=== PATIENT | male | born 1930 | race Caucasian/White ===

== ENCOUNTER 2017-10-21 11:30 | Emergency (ER) | payer MEDICARE ==
[~2017-10-21] VITALS: Ht 177.8 cm; Wt 95.3 kg
[~2017-10-21 11:30] MED LIST: Z.0.ZOCOR20 MG PO; Z.1.ATENOLOL-CHLOR1; [UNRECOGNIZED DRUG - OTHER] PO
[2017-10-21] MEDS ORDERED: COLCHICINE 0.6 MG TAB PO ONE ×2 (12:30→13:00)
== END 2017-10-21 14:21 | disposition home or self-care (01) ==
LOC: ER 11:30
DX: M25.572 Pain in left ankle and joints of left foot (principal); M25.571 Pain in right ankle and joints of right foot; M10.072 Idiopathic gout, left ankle and foot; M10.071 Idiopathic gout, right ankle and foot
CPT/HCPCS: 99283

== ENCOUNTER 2018-08-14 18:34 | Observation (INO) | payer MEDICARE ==
[~2018-08-14] VITALS: Ht 175.3 cm; Wt 90.5 kg
--- OUTSIDE RECORDS SUMMARY | 2018-08-14 18:37 | XMS REPORT | Continuity of Care Document ---
Author Author [facility] Interface Address Unknown Phone Unavailable Problems Problem Status Onset Date Classification Date Reported Comments Source Medications Medication Details Route Status Patient Instructions Ordering Provider Order Date Source Aspirin (Aspir-Low) 81 Mg Tablet.dr Daily Active [facility] Atenolol/Chlorthalidone (Atenolol-Chlorthal 50-25 Tb) 1 Each Tablet [facility] Simvastatin (Zocor) 20 Mg Tablet Daily [facility] Allergies, Adverse Reactions, Alerts Substance Category Reaction Severity Reaction type Status Date Reported Comments Source Immunizations Immunization Date Given Site Status Last Updated Comments Source Results Order Name Results Value Reference Range Date Interpretation Comments Source Vital Signs Vital Sign Value Date Comments Source Encounters Location Location Details Encounter Type Encounter Number Reason For Visit Attending Provider ADM Date DC Date Status Source Departed Emergency Room [id number] KRYSTIAN REBOLLEDO MD 10/21/2017 10/21/2017 [facility] Outpatient [id number] QUENTIN MEADOWS 08/07/2018 Active [facility] Procedures Procedure Code Date Perfomer Comments Source
[2018-08-14 19:27] LABS: BASOPHILS % 0.3 % (0.0-1.0); EOSINOPHILS # (AUTO) 0.1 (0.0-0.4); EOSINOPHILS % 0.9 % (0.0-6.0); HEMATOCRIT 41.5 % (38.2-49.6); HEMOGLOBIN 13.9 g/dL (14.0-18.0); LYMPHOCYTES # (AUTO) 2.6 (1.0-3.2); LYMPHOCYTES % 27.9 % (18.0-39.1); MEAN CORPUSCULAR HGB CONC 33.5 g/dL (31-35); MEAN CORPUSCULAR VOLUME 89.4 fL (81-99); MONOCYTES # (AUTO) 0.9 (0.2-0.8); NEUTROPHILS # (AUTO) 5.5 (2.1-6.9); NEUTROPHILS % 60.6 % (38.7-80.0); PLATELET COUNT 276 x10e3/uL (140-360); RED BLOOD COUNT 4.64 x10e6/uL (4.3-5.7); RED CELL DISTRIBUTION WIDTH 13.8 % (11.7-14.4)
--- NOTE | 2018-08-14 19:27 | NUR ---
ER AT BEDSIDE FOR INITIAL EVAL
[2018-08-14 19:35] LABS: INR 0.94; PROTHROMBIN TIME 13.4 seconds (11.9-14.5)
[2018-08-14 19:36] LABS: PARTIAL THROMBOPLASTIN TIME 32.3 seconds (23.8-35.5)
[2018-08-14 19:43] LABS: ALBUMIN 3.6 g/dL (3.5-5.0); ALBUMIN/GLOBULIN RATIO 1.1 (0.8-2.0); ANION GAP 16.8 mmol/L (8-16); CALCIUM 9.7 mg/dL (8.4-10.2); CREATININE, SERUM 1.21 mg/dL (0.72-1.25); POTASSIUM 3.8 mmol/L (3.5-5.1)
--- NOTE | 2018-08-14 19:55 | Diagnostic Imaging Report ---
CHEST SINGLE (PORTABLE), 08/14/2018 7:11 PM Technique: CHEST SINGLE (PORTABLE) Comparison: None available. Clinical history: Possible TIA Findings: See Impression Impression: Limited by portable lordotic view 1. Cardiomediastinal silhouette is accentuated by technique. Aortic calcification. 2. No consolidation, though limited evaluation of the lung bases due to technique. 3. No effusion or pneumothorax. Signed by: Dr Patricia Dueñas MD on 08/14/2018 7:52 PM
[2018-08-14 20:03] LABS: CREATINE KINASE MB 0.7 ng/mL (0-5.0); THYROID STIMULATING HORMONE 0.871 uIU/mL (0.350-4.940)
--- NOTE | 2018-08-14 20:27 | NUR ---
PT GIVEN URINAL, STATES DOES NOT NEED TO VOID AT PRESENT
--- NOTE | 2018-08-14 20:44 | Diagnostic Imaging Report ---
EXAMINATION: Head CT without contrast. HISTORY:Dizziness and altered mental status. COMPARISON:None. TECHNIQUE: Multidetector axial images were obtained from the foramen magnum to the vertex without contrast. The images were reconstructed using brain and bone algorithms. Thin section brain images were reformatted into coronal and sagittal planes. Dose modulation, iterative reconstruction, and/or weight based adjustment of the mA/kV was utilized to reduce the radiation dose to as low as reasonably achievable. Intravenous contrast: None IMAGE QUALITY: Acceptable. FINDINGS: Skull/scalp: No lytic or blastic. lesions. No surgical changes. Parenchyma: Focal hypodensity in left subinsular region represents age indeterminate vascular insult. Nonspecific bilateral frontoparietal patchy white matter hypodensity are likely related to small vessel ischemic changes. No acute hemorrhage or mass. Arteries: Atherosclerotic calcification in bilateral carotid siphon and V4 segment of right vertebral artery. Mild nonspecific hyperdense appearance of intracranial vessels may represent artifact or related to elevated hematocrit/dehydration. Dural sinuses: No abnormal density suggestive of thrombosis. Ventricles: Moderate compensated dilatation due to volume loss. No acute hydrocephalus. Extra-axial spaces: No abnormal density. Brain volume: Generalized age-related cerebral volume loss. Craniocervical junction: No mass, Chiari malformation, or basilar invagination. Sella: No mass. Paranasal/mastoid sinuses: Imaged portions unremarkable. IMPRESSION: 1. Age indeterminate vascular insult in left subinsular region. 2. Mild supratentorial white matter microvascular ischemic changes. 3. Generalized age-related cerebral volume loss. Signed by: Dr. Amy Womack M.D. on 08/14/2018 8:40 PM
[2018-08-14] MEDS ORDERED: SIMVASTATIN20 MG PO (20:53)
[2018-08-14] MEDS ORDERED: METOPROLOL TAR100 MG PO (20:53)
[2018-08-14] MEDS ORDERED: HYDROCHLOROTHIA50 MG PO (20:53)
--- OUTSIDE RECORDS SUMMARY | 2018-08-14 20:54 | XMS REPORT ---
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 Allergies, Adverse Reactions, Alerts This patient has no known allergies or adverse reactions. Medications This patient has no known medications. Results Test Description Test Time Test Comments Text Results Atomic Results Result Comments CT BRAIN WO 2018-08-14 20:36:00 [place] [address] Patient Name: RADHA PISANO MR #: [id number] : 1930 Age/Sex: 88/M Req #: [id number] Adm Physician: Ordered by: RIDDHI ANDREW MD Report #: [id number] Location: ER Room/Bed: Procedure: [id number] CT/CT BRAIN WO Exam Date: 08/14/18 Exam Time: 1840 REPORT STATUS: Signed EXAMINATION: Head CT without contrast. HISTORY:Dizzi ness and altered mental status. COMPARISON:None. TECHNIQUE: Multidetector axial images were obtained from the foramen magnum to the vertex without contrast. The images were reconstructed using brain and bone algorithms. Thin section brain images were reformatted into coronal and sagittal planes. Dose modulation, iterative reconstruction, and/or weight based adjustment of the mA/kV was utilized to reduce the radiation dose to as low as reasonably achievable. Intravenous contrast: None IMAGE QUALITY: Acceptable. FINDINGS: Skull/scalp: No lytic or blastic. lesions. No surgical changes. Parenchyma: Focal hypodensity in left subinsular region represents age indeterminate vascular insult. Nonspecific bilateral frontoparietal patchy white matter hypodensity are likely related to small vessel ischemic changes. No acute hemorrhage or mass. Arteries: Atherosclerotic calcification in bilateral carotid siphon and V4 segment of right vertebral artery. Mild nonspecific hyperdense appearance of intracranial vessels may represent artifact or related to elevated hematocrit/dehydration. Dural sinuses: No abnormal density suggestive of thrombosis. Ventricles: Moderate compensated dilatation due to volume loss. No acute hydrocephalus. Extra-axial spaces: No abnormal density. Brain volume: Generalized age-related cerebral volume loss. Craniocervical junction: No mass, Chiari malformation, or basilar invagination. Sella: No mass. Paranasal/mastoid sinuses: Imaged portions unremarkable. IMPRESSION: 1. Age indeterminate vascular insult in left subinsular region. 2. Mild supratentorial white matter microvascular ischemic changes. 3. Generalized age-related cerebral volume loss. Signed by: Dr. Amy Womack M.D. on 08/14/2018 8:40 PM Dictated By: AMY WOMACK MD 39 Transcribed By: ANASTASIA on 08/14/182039 COPY TO: RIDDHI ANDREW MD CHEST SINGLE (PORTABLE) 2018-08-14 19:51:00 [place] [address] Patient Name: RADHA PISANO MR #: [id number] : 1930 Age/Sex: 88/M Req #: [id number] Adm Physician: Ordered by: LEIGHA AVALOS PROVIDER RELATIONS REP Report #: [id number] Location: ER Room/Bed: Procedure: [id number] DX/CHEST SINGLE (PORTABLE) Exam Date: 08/14/18 Exam Time: 193 REPORT STATUS: Signed CHEST SINGLE (PORTABLE), 08/14/2018 7:11 PM Te kendricknique: CHEST SINGLE (PORTABLE) Comparison: None available. Clinical history: Possible TIA Findings: See Impression Impression: Limited by portable lordotic view 1. Cardiomediastinal silhouette is accentuated by technique. Aortic calcification. 2. No consolidation, though limited evaluation of the lung bases due to technique. 3. No effusion or pneumothorax. Signed by: Dr Cora Dueñas MD on 08/14/2018 7:52 PM Dictated By: CORA DUEÑAS MD 51 Transcribed By: ANASTASIA on 08/14/181951 COPY TO: LEIGHA AVALOS NP
[2018-08-14 21:33] LABS: BILIRUBIN,URINE NEGATIVE (NEGATIVE); CLARITY,URINE CLEAR (CLEAR); COLOR,URINE YELLOW (YELLOW); KETONES,URINE TRACE (NEGATIVE); LEUKOCYTE ESTERASE ,URINE NEGATIVE (NEGATIVE); NITRITE,URINE NEGATIVE (NEGATIVE); PROTEIN,URINE DIPSTICK NEGATIVE (NEGATIVE); URINE UROBILINOGEN 0.2 mg/dL (0.2 - 1)
[2018-08-14 21:44] LABS: WBC,URINE (MAN) 0-5 /HPF (0-5)
[2018-08-14 22:49] VITALS: BP 151/87
[2018-08-14 22:50] VITALS: BP 151/87
--- NOTE | 2018-08-14 22:50 | NUR ---
Pt received from ER. Pt A&O and in no apparent distress. Pt on 2LNC and tele #3. Neuro checks performed with 0 deficits. Pt son at bedside. All safety measures ensured, bed alarm on, and pt call mann near. Pt encouraged to use call mann for assistance.
[2018-08-15 04:00] VITALS: BP 131/68
--- NOTE | 2018-08-15 05:12 | NUR ---
Dr. Francheska graf
--- NOTE | 2018-08-15 07:10 | NUR ---
Walking rounds done. Patient is resting in bed without any complaints. Son at the bedside. POC discussed. Pt instructed to call for assistance as needed and verbalized understanding.
[2018-08-15 07:57] VITALS: BP 132/72
[2018-08-15] MEDS: ASPIRIN 325 MG TAB PO SCH (08:23)
[2018-08-15] MEDS: HYDROCHLOROTHIAZIDE 25 MG TAB PO SCH (08:23)
[2018-08-15] MEDS: METOPROLOL TARTRATE 50 MG TAB PO SCH (08:27)
--- NOTE | 2018-08-15 09:15 | NUR ---
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 CM/SW role and care transitions discussed. Anticipated discharge plan discussed along with duration of care. CM/SW discussed patients right to make decisions in care. CM/SW work hours given. Patient lives: IN [facility] Admit/Transfer: VIA ED POA/Emergency contact: BARBARA [phone] Current/Previous Home Health: NONE PCP/Follow-up Care: LANE Current/Previous DME: NONE Other Services: NONE Employment Status: RETIRED Areas of Concerns: NONE Referral Needs: NONE Education Needs: NONE IMM/PIERRE given and signed (if applicable): PIERRE Goal for discharge: RETURN HOME NO NEEDS CM/SW left business card at the bedside with contact information. Name and number was also written on the patients whiteboard. Patient verbalized understanding of discussion. CM will follow-up with ongoing discharge and transition of care needs.
--- NOTE | 2018-08-15 09:16 | NUR ---
POST DISCHARGE STATUS FORM FILED IN FRONT OF CHART RETURNING HOME NO NEEDS
--- NOTE | 2018-08-15 11:49 | Diagnostic Imaging Report ---
Exam: Brain MRI without IV contrast History: TIA Comparison studies: Head CT of 08/14/2018. Technique: Sagittal and axial T2 FS, axial DWI, axial T2*GRE, axial T1 FLAIR and axial coronal T2 FLAIR. Intravenous contrast: None Findings: Several pulse sequences are limited by artifacts related to patient motion. Scalp: Normal in signal. No masses. Bone marrow: Normal in signal intensity. Brain sulci: Moderately prominent.. Ventricles: Moderate compensatory dilatation. No hydrocephalus. Extra axial spaces: No mass, no fluid collection. Parenchyma: No mass, acute hemorrhage or acute ischemia. A few scattered T2 FLAIR hyperintense foci in the supratentorial white matter are nonspecific most compatible with chronic microvascular ischemic changes. Small chronic bilateral subinsular lacunar infarcts. Suprasellar region: No abnormalities. Craniocervical junction: Patent foramen magnum. No Chiari malformation. Vessels: Normal flow-voids in the arteries and sinuses. Incidental findings: Lens replacements for previous cataract surgery. Minimal nonspecific reactive T2 hyperintense changes in the right mastoids. IMPRESSION: 1. No acute ischemia or other acute intracranial abnormalities. 2. Mild chronic microvascular ischemic changes. 3. Small chronic bilateral subinsular lacunar infarcts. Signed by: Dr. Damir Diego M.D. on 08/15/2018 11:46 AM
[2018-08-15 12:11] VITALS: BP 141/68
--- NOTE | 2018-08-15 15:50 | NUR ---
Dr. Corrales at the bedside making rounds. Son and at bedside and able to ask all questions.
[2018-08-15 16:11] VITALS: BP 134/70
[2018-08-15] MEDS ORDERED: ENOXAPARIN SOD INJ 40 MG/0.4 ML SYR SC SCH (17:00)
[2018-08-15] MEDS: FAMOTIDINE 20 MG TAB PO SCH (17:12)
--- NOTE | 2018-08-15 17:32 | Consultation ---
DATE OF CONSULTATION: August 15, 2018 NEUROLOGY CONSULTATION HISTORY OF PRESENT ILLNESS: Mr. Pena is an 88-year-old right hand dominant man with past medical history significant for hypertension and hyperlipidemia, admitted to [facility] under observation status on August 14, 2018, with symptoms of a transient ischemic attack. On the evening of admission, the patient experienced the abrupt onset of dysarthria, expressive aphasia, questionable receptive aphasia, and questionable confusion. Mr. Pena does not report a visual field cut or other disturbance, facial droop, hemiparesis, hemihypesthesia, poor balance, or gait impairment associated with the above symptoms. The above symptoms were witnessed by the patient's and son. The son transported Mr. Pena to the emergency center at [facility] for further evaluation of his symptoms. The time to transport was approximately 30 minutes. Once the patient was in the emergency center, his symptoms quickly resolved. Upon arrival in the emergency center, the patient was afebrile with a blood pressure 140/87 mmHg and a pulse of 71 beats per minute. The patient's neurological examination was documented as being nonfocal. A CT of the brain without contrast was performed but did not show evidence of recent large territorial ischemia or hemorrhage. Mr. Pena was then admitted to [facility] under observation status for further evaluation and treatment of his symptoms. Mr. Pena does not report experiencing similar symptoms previously. He does endorse a history of chronic intermittent vertigo but denies experiencing any dizziness with the above described symptoms. At present, the patient is not taking antiplatelet or anticoagulant medication daily. REVIEW OF SYSTEMS: Hearing loss, confusion, dysarthria, aphasia. Otherwise, the 12 point review of systems is negative. PAST MEDICAL HISTORY: Hypertension, hyperlipidemia, prior history of skin cancer, chronic intermittent vertigo, shingles. PAST SURGICAL HISTORY: Lumbar spine surgery, removal of a cyst over the back of the neck, tonsillectomy, bilateral bunionectomy, other bilateral foot surgery, bilateral cataract removal, resection of skin cancer on the face. PAST HOSPITALIZATIONS: Surgeries/procedures as listed, lower extremity edema, nosebleed. FAMILY MEDICAL HISTORY: The patient's father is from Hodgkin's lymphoma. His mother is from coronary artery disease with a myocardial infarction. Mr. Pena had 2 brothers. One is from an intestinal blockage. The second brother is alive. He has a history of prostate cancer and one other unknown cancer. Mr. Pena had 3 children, 2 sons and 1 daughter. One son is from a metastatic gastrointestinal tumor. The second son is alive and healthy. The daughter is alive but has asthma. SOCIAL HISTORY: Ms. Pena is . He is retired. The patient does not report current or prior tobacco, alcohol, or recreational drug use. HOME MEDICATIONS: Hydrochlorothiazide 50 mg by mouth daily, metoprolol 100 mg by mouth daily, simvastatin 20 mg by mouth at bedtime daily. ALLERGIES: NO KNOWN DRUG ALLERGIES. NO KNOWN FOOD ALLERGIES. NO KNOWN ALLERGIES TO LATEX. NO KNOWN ALLERGIES TO IODINE OR OTHER CONTRAST MATERIALS. PHYSICAL EXAMINATION: VITAL SIGNS: Height 69 inches, weight 200 pounds. BMI 29.6 kg per meter squared. Blood pressure 141/68 mmHg. Pulse 53 beats per minute. Respiratory rate 18 breaths per minute, oxygen saturation 99% on room air. GENERAL: The patient is awake and alert. Does not appear distressed. Overweight. HEENT: Normocephalic, atraumatic. Pupils are surgical. Moist mucous membranes. NECK: Supple. No appreciable thyromegaly. No appreciable carotid bruits. CARDIOVASCULAR: S1, S2. Regular rate and rhythm. No murmurs, rubs, or gallops. RESPIRATORY: Clear to auscultation bilaterally. No wheezes, rhonchi, or rales. EXTREMITIES: The skin is warm and dry. No clubbing, cyanosis, or edema. The posterior tibial and dorsalis pedis pulses are 2+ and symmetric. SKIN: No rashes or lesions. NEUROLOGIC: Memory/Attention: The patient is awake and alert. Oriented to person, place, time, and situation. Cranial Nerves: Cranial nerve 1--Not tested. Cranial nerve 2, 3, 4, and 6--Pupils are surgical. Extraocular movements intact. No nystagmus. Cranial nerve 5--Sensation to light touch and pinprick is intact in the bilateral V1 through V3 distributions. Strength of the temporalis and masseter muscles is within normal limits. Cranial nerve 7--The face is symmetric as are all facial movements. Strength is within normal limits. Cranial nerve 8--Hearing is diminished to finger rub bilaterally. Cranial nerve 9, 10--The soft palate elevates equally and symmetrically. Cranial nerve 11--Normal strength of the bilateral sternocleidomastoid and trapezius muscles. Cranial nerve 12--The tongue protrudes midline and moves symmetrically from side to side. Strength: Bulk is normal. Strength is 5/5 in the bilateral deltoids, biceps, triceps, wrist flexors and extensors, finger flexors and extensors, intrinsic hand muscles, hip flexors, knee flexors and extensors, ankle dorsiflexion and plantarflexion, and intrinsic foot muscles. Tone is normal. DTRs: Deep tendon reflexes are 2+ and symmetric at the triceps, biceps, brachioradialis, and patellas. Deep tendon reflexes are absent and symmetric at the Achilles. Plantar responses are flexor bilaterally. Sensation: Sensation is intact to light touch and pinprick in both arms and both legs. Cerebellar: Fmtlzj-qioi-iabaxr and heel-roberts movements are intact without dysmetria or other impairment. Gait: Deferred. Speech: Spontaneous speech is normal without appreciable dysarthria or aphasia. Repetition is intact. Involuntary Movements: None. Pronator Drift: None. LABORATORY DATA: A comprehensive metabolic panel is significant for an anion gap of 16.8 and a mildly decreased estimated GFR of 57. Cardiac enzymes are negative times 1. B-natriuretic peptide 67.1. TSH 0.871. The CBC with differential and platelets reveals a white blood cell count of 9.14 with a normal differential. The hemoglobin and hematocrit are 13.9 and 41.5, respectively. The platelet count is 276. A coagulation profile is within normal limits. A urinalysis was significant for an elevated pH of 8 and trace ketones. A urine culture collected on August 14, 2018, reveals no growth. DIAGNOSTIC STUDIES: Electrocardiogram August 14, 2018: Normal sinus rhythm at 64 beats per minute. Left ventricular hypertrophy. CT of the brain without contrast August 14, 2018: On my review, there is no evidence of recent large territorial ischemia, hemorrhage, mass, or mass effect. A subacute to chronic lacunar infarct is seen in the left subinsular region. There is diffuse cerebral atrophy with compensatory ventriculomegaly, appropriate for age. There are findings compatible with mild chronic small-vessel ischemic disease. Chest x-ray August 14, 2018: Limited by portable lordotic view. 1. Cardiomediastinal silhouette is accentuated by technique. Aortic calcification. 2. No consolidation, though limited evaluation of the lung bases due to technique. 3. No effusion or pneumothorax. Echocardiogram August 15, 2018: Ejection fraction 50%. Concentric left ventricular hypertrophy. Trace tricuspid regurgitation. Bilateral carotid artery ultrasound with Doppler August 15, 2018: Pending. MRI of the brain without contrast August 15, 2018: On my review, there is no evidence of recent large territorial ischemia, hemorrhage, mass, or mass effect. Two remote lacunar infarcts are seen in the bilateral subinsular regions. There is diffuse cerebral atrophy with compensatory dilatation of the ventricles, appropriate for the patient's age. There are scattered nonspecific T2/FLAIR hyperintense foci in the supratentorial white matter compatible with chronic small-vessel ischemic disease. ASSESSMENT AND PLAN: Mr. Pena is an 88-year-old right hand dominant man with vascular risk factors, admitted to [facility] under observation status on August 14, 2018, with symptoms of a transient ischemic attack. At present, the patient's neurological examination is nonfocal. His laboratory data and other diagnostic studies have been reviewed and are documented above. RECOMMENDATIONS: 1. A lipid panel and hemoglobin A1c will be ordered to complete the stroke evaluation. 2. Follow up the final results of the echocardiogram and bilateral carotid artery ultrasound with Doppler. 3. Continue treatment with aspirin 325 mg by mouth daily for stroke prophylaxis. 4. The patient's goal blood pressure is less than 140/90 mmHg before discharge. At present, the patient's blood pressures are at goal. Continue Mr. Pena' home antihypertensive medications. Monitor vital signs per unit protocol. 5. The patient's goal total cholesterol is less than 200 with an LDL of less than 70. Continue the patient's home medication of simvastatin 20 mg by mouth at bedtime daily. Follow up the results of the lipid panel and adjust the medication accordingly. 6. The patient's goal hemoglobin A1c is less than 7.0. Follow up the result with a hemoglobin A1c. Tight glycemic control is recommended while the patient is in the hospital. 7. Speech and physical therapy consultations will be deferred as the patient has no focal deficits. 8. GI prophylaxis with Pepcid 20 mg by mouth twice daily with meals. DVT prophylaxis with Lovenox 40 mg subcutaneously daily. Thank you for this consultation. I will continue to follow the patient while he remains in the hospital. Time spent: 50 minutes. Job#: [id number] EV DORETHA
[2018-08-15 17:58] LABS: CHOL/HDL RATIO 2.8 (3.9-4.7)
[2018-08-15 18:00] VITALS: BP 134/70
--- NOTE | 2018-08-15 18:58 | NUR ---
Report given to oncoming shift.
[2018-08-15 19:15] VITALS: BP 124/66
--- NOTE | 2018-08-15 19:15 | NUR ---
report given and walking rounds complete. pt resting in bed and in no apparent distress.
[2018-08-15] MEDS ORDERED: ATORVASTATIN 20 MG TAB PO SCH (21:00)
[2018-08-15] MEDS ORDERED: SIMVASTATIN 20 MG TAB PO SCH (21:00)
[2018-08-16 00:40] VITALS: BP 130/68
[2018-08-16 05:35] VITALS: BP 133/64
--- NOTE | 2018-08-16 07:13 | NUR ---
report given and walking rounds complete
[2018-08-16] MEDS: FAMOTIDINE 20 MG TAB PO SCH (07:17)
--- NOTE | 2018-08-16 07:28 | NUR ---
patient resting in bed, Alert with no distress, denies any pain, call light in reach
[2018-08-16 08:10] VITALS: BP 147/70
[2018-08-16] MEDS: METOPROLOL TARTRATE 50 MG TAB PO SCH (09:05)
[2018-08-16] MEDS: ASPIRIN 325 MG TAB PO SCH (09:05)
[2018-08-16] MEDS: HYDROCHLOROTHIAZIDE 25 MG TAB PO SCH (09:05)
[2018-08-16 09:22] VITALS: BP 147/70
--- NOTE | 2018-08-16 11:35 | NUR ---
Recvd carotid doppler result from ECHO, result read back to Dr Pritchard, New order recvd to Discharge patient home, continue all home medication
[2018-08-16 11:41] VITALS: BP 159/70
--- NOTE | 2018-08-16 12:48 | NUR ---
Patient discharged home,No New prescriptions and continue all home meds as per Dr Pritchard, IV Canula removed with tip intact. no ss of infiltration noted, Tele box returned, His son at bed side taking him home, denies any pain, no distress noted, transported via to [facility]
== END 2018-08-16 12:20 | disposition home or self-care (01) ==
LOC: ER 18:34 → INTOOBSV 20:47 → ERHOLD 20:47 → IMCU 22:37
PROVIDERS: ADMIT Internal Medicine; ATTEND Internal Medicine
DX: G45.9 Transient cerebral ischemic attack, unspecified (principal); I10 Essential (primary) hypertension; N40.0 Benign prostatic hyperplasia without lower urinary tract symptoms; E78.00 Pure hypercholesterolemia, unspecified; Z82.49 Family history of ischemic heart disease and other diseases of the circulatory system
CPT/HCPCS: 36415 ×2; 70450; 70551; 71045; 80053; 80061; 81001; 82550; 82553; 83036; 83880; 84443; 84484; 85025; 85610; 85730; 87086; 93005; 93306; 93880; 99284; G0378 ×3; J1650

== ENCOUNTER 2019-11-02 12:11 | Emergency (ER) | payer MEDICARE ==
[~2019-11-02] VITALS: Ht 175.3 cm; Wt 90.3 kg
[~2019-11-02 12:11] MED LIST changes: +HYDROCHLOROTHIA50 MG PO; +METOPROLOL TAR100 MG PO; +SIMVASTATIN20 MG PO
[2019-11-02] MEDS ORDERED: TETANUS/DIPHTHERIA TOX ADULT 0.5 ML SYR IM ONE (13:00)
[2019-11-02] MEDS ORDERED: NEOMYCIN/POLYMYX/BACITR OINT 0.9 GM PKT ONE (13:14)
--- NOTE | 2019-11-02 13:44 | Diagnostic Imaging Report ---
Exam: Left elbow 3 views History: Pain status post fall Comparison: None. Findings: No acute, displaced fracture or dislocation. Joint space is well-maintained without effusion. No gross soft tissue defect or radiopaque foreign body. Impression: No acute osseous abnormality. Signed by: Dr. Damir Alcala M.D. on 11/02/2019 1:41 PM
--- NOTE | 2019-11-02 14:00 | Diagnostic Imaging Report ---
Examination: CT head without contrast Clinical Indication: Fall with head injury. Technique: Transaxial noncontrast images from the skull base through the vertex were obtained. Sagittal and coronal reformatted images were done. Dose modulation, iterative reconstruction, and/or weight based adjustment of the mA/kV was utilized to reduce the radiation dose to as low as reasonably achievable. Comparison: Brain MRI dated 08/15/2018. Findings: Scalp: No abnormalities. Bones: Intact. No fractures. No blastic or lytic lesions. Brain sulci: Moderate volume loss for patient's age. Ventricles: No hydrocephalus. Extra-axial space: No abnormalities. Parenchyma: There are patchy areas of low-attenuation within subcortical and periventricular white matter, nonspecific, but could represent microvascular ischemic disease. Small chronic bilateral subinsular lacunar infarcts. No masses, hemorrhage, or acute or chronic cortical based vascular insults. Suprasellar region: No abnormalities. Craniocervical junction: The foramen magnum is patent. No Chiari one malformation. Incidental findings: Atherosclerotic calcification of the cavernous and supraclinoid internal carotid and V4 segments of the bilateral vertebral arteries. Impression: 1. No new acute intracranial finding when compared to prior brain MRI dated 08/15/[address] dated 08/14/2013. 2. Unchanged chronic microvascular ischemic change and volume loss. Signed by: Dr. Montse Lauren M.D. on 11/02/2019 1:57 PM
--- NOTE | 2019-11-02 14:05 | Diagnostic Imaging Report ---
Examination: CT CERVICAL SPINE WO CONTRAST HISTORY:Neck pain and injury after fall. COMPARISON:None. TECHNIQUE: Multidetector helical axial images were obtained without contrast from the foramen magnum to T1. Coronal and sagittal reformatted images were done. Bone and soft tissue windows were evaluated. Dose modulation, iterative reconstruction, and/or weight based adjustment of the mA/kV was utilized to reduce the radiation dose to as low as reasonably achievable. FINDINGS: Alignment:Normal alignment and lordosis. Vertebrae: Normal height and density. No acute fracture, infection or neoplasm. Disc space heights: Normal height. Caliber of spinal canal: Developmentally normal. Posterior fossa and craniocervical junction: Foramen magnum patent. No Chiari 1 malformation. 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 Grade I anterolisthesis of C4 on C5. DIffuse disc bulges at C4-C5 and C5-C6 without canal stenosis. The remaining cervical levels demonstrate no disc herniation or canal stenosis. Visualized lung apices: No abnormalities. IMPRESSION: 1. No acute abnormalities. 2. Degenerative change as above. Signed by: Dr. Montse Lauren M.D. on 11/02/2019 2:02 PM
[2019-11-02] MEDS ORDERED: NEOMYCIN/POLYMYXIN/BACITRACIN 15 GM TUBE TOP SCH (17:00)
== END 2019-11-02 14:25 | disposition home or self-care (01) ==
LOC: ER 12:11
DX: S50.312A Abrasion of left elbow, initial encounter (principal); S00.83XA Contusion of other part of head, initial encounter; M25.522 Pain in left elbow; W01.0XXA Fall on same level from slipping, tripping and stumbling without subsequent striking against object, initial encounter; Y92.008 Other place in unspecified non-institutional (private) residence as the place of occurrence of the external cause; I10 Essential (primary) hypertension; E78.5 Hyperlipidemia, unspecified; M10.9 Gout, unspecified
CPT/HCPCS: 70450; 72125; 90471; 90714; 99284